=== PATIENT | male | born 1955 | race Caucasian/White ===

== ENCOUNTER 2020-11-07 07:42 | Day surgery (SDC) | payer OTHER ==
[~2020-11-07] VITALS: Ht 170.2 cm; Wt 84.3 kg
[~2020-11-07 07:42] MED LIST: DOCU100 PO; [UNRECOGNIZED DRUG - REMARK]
--- NOTE | 2020-11-07 08:46 | NUR ---
Ambulatory in Day Surgery History, Chart, Medications and Allergies reviewed before start of procedure. Lungs clear T/O to Auscultation. Patient confirms NPO status and agrees with scheduled surgery. Patient reports completing Chlorhexadine shower X2 prior to admission to hospital.
--- NOTE | 2020-11-10 11:09 | NUR ---
11/10/20 1109 Papst,Nikunj D VERIFICATION: CORECTION OF IMPLANT PLACEMENT AFTER CONFIRMED WITH MILADIS MCCLAIN AND DR. JOHNSON
== END 2020-11-07 22:42 | disposition home or self-care (01) ==
LOC: ORSCMMR 07:42 → ORD 08:30 → ORSCMMR 09:30
DX: K40.90 Unilateral inguinal hernia, without obstruction or gangrene, not specified as recurrent (principal)
CPT/HCPCS: 49650; S2900; A9270; C1781; J0690; J1100; J1885; J2250; J2405; J2704; J3010; J7120